=== PATIENT | female | born 1980 | race Caucasian/White ===

== ENCOUNTER 2017-05-15 10:51 | Emergency (ER) | payer BC ==
[2017-05-15] MEDS ORDERED: Ondansetron ODT 4 MG TAB ONE (11:15)
[2017-05-15 12:12] LABS: Bilirubin Negative (Negative); Blood, Urine Negative (Negative); Clarity Clear (Clear); Glucose, Urine (Dipstick) Negative (Negative); Leukocyte Negative (Negative); Nitrite Negative (Negative); Protein, Urine (Dipstick) Negative (Neg-Trace); Specific Gravity, Urine 1.015 (1.005-1.030); Urobilinogen 0.2 mg/dL (0.2-1.0); pH, Urine 6.5 (5.0-9.0)
[2017-05-15 12:21] LABS: Pregnancy Test - Urine (BHCG) Negative (Negative); Pregu Control Background? CLEAR/WHITE (CLR/WHITE); Pregu Control Bar Appear? YES (CONTROL BAR); Specific Gravity 1.015 (1.002-1.036)
--- NOTE | 2017-05-15 13:50 | ULT ---
PELVIC ULTRASOUND: (transabdominal, transvaginal, grover scale, color flow, and spectral Doppler) HISTORY: Left lower quadrant pain. Negative test. FINDINGS: The uterus measures 7.5 x 5.6 x 4.2 cm without mass or endometrial fluid. A nabothian cyst is presen t measuring 1.6 cm. The right ovary measures 2.4 x 1.4 x 0.9 cm and the left ovary measures 2.8 x 1.7 x 1.5 cm. Flow is demonstrated to both ovaries. There is a 1.5 cm cyst in the left ovary. No free fluid is seen. IMPRESSION: No significant abnormalities are identified. POS: [facility]
== END 2017-05-15 13:40 | disposition home or self-care (01) ==
LOC: MADERS 10:51
DX: N83.202 Unspecified ovarian cyst, left side (principal)
CPT/HCPCS: 76856; 81003; 81025; 87491; 87591; Q0162

== ENCOUNTER 2017-07-14 02:41 | Emergency (ER) | payer BC ==
[2017-07-14 04:16] LABS: #Lymphocytes 0.6 thou/uL (1.20-3.40); #Monocytes 0.6 thou/uL (0.11-0.59); #Neutrophils 10.7 thou/uL (1.40-6.50); %Basophils 0.1 % (0.0-1.0); %Eosinophils 0.1 % (0.0-10.0); %Lymphocytes 4.9 % (21.0-51.0); %Monocytes 4.7 % (0.0-10.0); %Neutrophils 90.2 % (42.0-75.0); Hemoglobin 10.2 g/dL (12.0-16.0); Mean Corpuscular HGB CONC 32.6 g/dL (32.0-36.0); Mean Corpuscular Hemoglobin 29.8 pg (27.0-31.0); Mean Corpuscular Volume 91.4 fl (81.0-99.0); Mean Platelet Volume 7.2 fL (7.4-10.4); Platelet Count 185 thou/uL (130-400); RBC Distribution Width 11.7 % (11.5-14.5); Red Blood Cell (RBC) Count 3.41 mill/uL (4.20-5.40); White Blood Cell (WBC) Count 11.9 thou/uL (4.8-10.8)
[2017-07-14 04:21] LABS: ALT (SGPT) 168 U/L (8-55); AST (SGOT) 253 U/L (5-34); Albumin 3.7 g/dL (3.5-5.0); Alcohol 167 mg/dL (Less than 10); Alkaline Phosphatase 84 U/L (40-150); Anion Gap 19 mmol/L (10-20); BUN (Urea Nitrogen) 6 mg/dL (7.0-18.7); Bilirubin, Total 0.4 mg/dL (0.2-1.2); Calc. Creatinine Clearance 0 mL/min (70-130); Calcium 8.3 mg/dL (7.8-10.44); Carbon Dioxide 14 mmol/L (22-29); Chloride 107 mmol/L (98-107); Estimated GFR-MDRD 84; Globulin 3.2 g/dL (2.4-3.5); Glucose 130 mg/dL (70-105); Lipase 198 U/L (8-78); Potassium 4.3 mmol/L (3.5-5.1); Protein, Total 6.9 g/dL (6.0-8.3); Sodium 136 mmol/L (136-145)
[2017-07-14 04:55] LABS: Bilirubin Negative (Negative); Blood, Urine Moderate (Negative); Clarity Clear (Clear); Glucose, Urine (Dipstick) Negative (Negative); Leukocyte Negative (Negative); Nitrite Negative (Negative); Protein, Urine (Dipstick) 30 mg/dL (Neg-Trace); pH, Urine 6.5 (5.0-9.0)
[2017-07-14 04:57] LABS: Pregnancy Test - Urine (BHCG) Negative (Negative); Pregu Control Background? CLEAR/WHITE (CLR/WHITE); Pregu Control Bar Appear? YES (CONTROL BAR); Specific Gravity 1.005 (1.002-1.036)
[2017-07-14 05:05] LABS: Bacteria/HPF None Seen HPF (None Seen); Cocaine Metabolite Screen Not Detected (NotDetected); Methamphetamine Not Detected (NotDetected); Phencyclidine (PCP) Not Detected (NotDetected); RBC/HPF 0-3 HPF (0-3); Specific Gravity, Urine 1.005 (1.002-1.036); Squamous Epithelial 0-3 HPF (0-3); THC/Cannabinoid Screen Not Detected (NotDetected); WBC/HPF 0-3 HPF (0-3)
[2017-07-14 05:06] LABS: Amphetamine Detected (NotDetected); Barbiturates Screen Not Detected (NotDetected); Benzodiazepine Screen Not Detected (NotDetected); Medtox Control Line Valid? VALID (VALID); Methadone Not Detected (NotDetected); Opiate Screen Detected (NotDetected); Oxycodone Screen Not Detected (NotDetected); Tricyclic Screen Not Detected (NotDetected)
[2017-07-14] MEDS ORDERED: Adacel (T-DAP) 0.5 ML VIAL ONE (05:28)
[2017-07-14] MEDS ORDERED: Sodium Chloride 0.9% 1,000 ML BAG ONE (08:29)
[2017-07-14] MEDS ORDERED: Sodium Chloride Irrig Solution 250 ML BOT ONE (08:29)
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
[2017-07-14] MEDS ORDERED: Iopamidol 370 76% 100 ML VIAL ONE (13:17)
== END 2017-07-14 06:31 | disposition short-term general hospital (02) ==
LOC: MADERS 02:41
DX: S32.039A Unspecified fracture of third lumbar vertebra, initial encounter for closed fracture (principal); S32.049A Unspecified fracture of fourth lumbar vertebra, initial encounter for closed fracture; T24.231A Burn of second degree of right lower leg, initial encounter; T31.0 Burns involving less than 10% of body surface; K85.20 Alcohol induced acute pancreatitis without necrosis or infection; L55.0 Sunburn of first degree; F10.129 Alcohol abuse with intoxication, unspecified; Y90.6 Blood alcohol level of 120-199 mg/100 ml; Z23 Encounter for immunization; V40.5XXA Car driver injured in collision with pedestrian or animal in traffic accident, initial encounter
CPT/HCPCS: 36415; 70450; 71260; 72125; 74177; 80053; 80306; 80307; 81003; 81015; 81025; 83690; 85025; 90471; 90715; 93005; 96360; J7050

== ENCOUNTER 2017-07-23 10:56 | Outpatient (CLI) | payer BC ==
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
== END 2017-07-23 10:57 | disposition home or self-care (01) ==
LOC: MADRAD 10:56
PROVIDERS: ATTEND Family Medicine
DX: M25.561 Pain in right knee (principal); V89.2XXA Person injured in unspecified motor-vehicle accident, traffic, initial encounter

== ENCOUNTER 2017-08-23 11:13 | Outpatient (CLI) | payer BC ==
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
== END 2017-08-23 11:14 | disposition home or self-care (01) ==
LOC: MADRAD 11:13
PROVIDERS: ATTEND Family Medicine
DX: S32.038D Other fracture of third lumbar vertebra, subsequent encounter for fracture with routine healing (principal); S32.048D Other fracture of fourth lumbar vertebra, subsequent encounter for fracture with routine healing; V89.2XXD Person injured in unspecified motor-vehicle accident, traffic, subsequent encounter
CPT/HCPCS: 72100